=== PATIENT | male | born 1980 | race African-American/Black ===

== ENCOUNTER 2017-10-20 13:57 | Emergency (ER) | payer MEDICAID | END 2017-10-20 16:24 | disposition home or self-care (01) | LOC: D.ER 13:57 | DX: S69.91XA Unspecified injury of right wrist, hand and finger(s), initial encounter (principal); X58.XXXA Exposure to other specified factors, initial encounter; Y93.89 Activity, other specified; Y92.019 Unspecified place in single-family (private) house as the place of occurrence of the external cause; M79.641 Pain in right hand; F17.200 Nicotine dependence, unspecified, uncomplicated ==

== ENCOUNTER 2018-01-15 00:21 | Emergency (ER) | payer MEDICAID | END 2018-01-15 02:08 | disposition home or self-care (01) | LOC: D.ER 00:21 | DX: L03.012 Cellulitis of left finger (principal); M54.2 Cervicalgia ==

== ENCOUNTER 2018-04-23 12:01 | Emergency (ER) | payer MEDICAID ==
[~2018-04-23] VITALS: Ht 160 cm; Wt 59.1 kg
[2018-04-23 12:07] VITALS: Ht 160 cm; Wt 59.1 kg
[2018-04-23 13:46] VITALS: BP 101/69
[2018-04-23] MEDS ORDERED: NAPROSYN500 MG PO (14:11)
== END 2018-04-23 14:24 | disposition home or self-care (01) ==
LOC: D.ER 12:01
DX: S89.92XA Unspecified injury of left lower leg, initial encounter (principal); V19.9XXA Pedal cyclist (driver) (passenger) injured in unspecified traffic accident, initial encounter; Y93.55 Activity, bike riding; Y92.9 Unspecified place or not applicable; F17.200 Nicotine dependence, unspecified, uncomplicated

== ENCOUNTER 2020-03-26 15:06 | Emergency (ER) | payer MEDICAID ==
[~2020-03-26] VITALS: Ht 160 cm; Wt 62.7 kg
[~2020-03-26 15:06] MED LIST: NAPROSYN500 MG PO
[2020-03-26 15:12] VITALS: Ht 160 cm; Wt 62.7 kg
[2020-03-26] MEDS ORDERED: PREDNISONE20 MG PO (16:23)
[2020-03-26] MEDS ORDERED: BROMFED-DM COU473 ML PO (16:23)
[2020-03-26] MEDS ORDERED: SUMATRIPTAN SUC25 MG PO (16:23)
[2020-03-26 16:41] VITALS: BP 105/64
== END 2020-03-26 16:41 | disposition home or self-care (01) ==
LOC: D.ER 15:06
DX: G44.009 Cluster headache syndrome, unspecified, not intractable (principal); J06.9 Acute upper respiratory infection, unspecified; J40 Bronchitis, not specified as acute or chronic; Z72.0 Tobacco use; R09.89 Other specified symptoms and signs involving the circulatory and respiratory systems